=== PATIENT | male | born 1955 | race Caucasian/White ===

== ENCOUNTER 2023-12-13 09:13 | Emergency (ER) | payer MEDICARE ==
[~2023-12-13] VITALS: Ht 182.9 cm; Wt 104.0 kg
[2023-12-13] VITALS (13 sets, daily range): BP systolic 104–134; BP diastolic 64–103
[2023-12-13] MEDS ORDERED: SODIUM CHLORIDE 0.9% 1,000 ML IV ONE (09:20)
[2023-12-13 09:56] LABS: BASO% 0.2 % (0-3); EOS% 0.3 % (0-8); HEMATOCRIT 44.5 % (39.0-50.0); HEMOGLOBIN 14.2 g/dl (14.0-18.0); IMMATURE GRANULOCYTES 0.2 % (0.0-5.0); LYMPH% 14.1 % (15-41); MEAN CELL VOLUME 87.8 fL CALC (80.0-100.0); MEAN CORPUSCULAR HGB CONC 31.9 g/dL CAL (32.0-36.0); MONO% 6.1 % (2-13); NEUT# 9.29 thou/uL (1.82-7.42); NEUT% 79.1 % (42-76); RED BLOOD COUNT 5.07 mill/uL (4.70-6.10); RED CELL DISTRI WIDTH 13.1 % (11.5-15.5)
[2023-12-13 10:10] LABS: ALBUMIN 4.4 g/dL (3.2-5.0); BILIRUBIN, TOTAL 0.6 mg/dL (0.2-1.3); CREATININE 0.8 mg/dL (0.7-1.3); POTASSIUM 4.3 mmol/l (3.5-5.1); TOTAL PROTEIN 7.4 g/dL (6.3-8.2)
== END 2023-12-13 13:49 | disposition home or self-care (01) ==
LOC: ED 09:13
PROVIDERS: Family Medicine
DX: R55 Syncope and collapse (principal); I10 Essential (primary) hypertension; E11.9 Type 2 diabetes mellitus without complications; Z20.822 Contact with and (suspected) exposure to COVID-19